=== PATIENT | female | born 1975 | race Two or more races ===

== ENCOUNTER 2017-09-21 09:46 | Outpatient (CLI) | payer OTHER ==
[2017-09-21] MEDS ORDERED: IOHEXOL-300 100 ML VIAL IV ONE (10:04)
[2017-09-21] MEDS ORDERED: CT SWABBABLE VALVE TRANS SET 1 EA INFUS.SET MC ONE (10:04)
[2017-09-21] MEDS ORDERED: IV NS 0.9% 250 ML IV ONE (10:04)
== END 2017-09-21 23:59 | disposition home or self-care (01) ==
LOC: CT 09:46
DX: K76.89 Other specified diseases of liver (principal)
CPT/HCPCS: 74160; J7050; Q9967